=== PATIENT | male | born 1980 | race Caucasian/White ===

== ENCOUNTER 2020-11-27 10:14 | Day surgery (SDC) | payer OTHER, SELFPAY ==
[~2020-11-27] VITALS: Ht 177.8 cm; Wt 88.5 kg
[2020-11-27] MEDS ORDERED: BUPIVACAINE /PF 0.25% 30 ML VIAL INJ ONE (11:36)
[2020-11-27] MEDS ORDERED: SEVOFLURANE 15 MIN GAS INH ONE (11:36)
[2020-11-27] MEDS ORDERED: MIDAZOLAM HCL 5 MG/5 ML VIAL IVP ONE (11:36)
[2020-11-27] MEDS ORDERED: ONDANSETRON HCL 4 MG/2 ML VIAL IVP ONE (11:36)
[2020-11-27] MEDS ORDERED: PROPOFOL 200MG/ 20ML VIAL (DIPRIVAN) IV ONE (11:36)
[2020-11-27] MEDS ORDERED: NS 1000 ML IV.SOLN IV ONE (11:36)
[2020-11-27] MEDS ORDERED: fentaNYL CITRATE/PF 100 MCG/2 ML AMP IVP ONE (11:36)
[2020-11-27] MEDS ORDERED: DEXAMETHASONE SOD PHOSPHATE 4 MG/ML VIAL IVP ONE (11:36)
[2020-11-27] MEDS ORDERED: LR 1,000 ML IV.SOLN IV ONE (11:36)
[2020-11-27] MEDS ORDERED: LR 1,000 ML IV SCH (12:15)
[2020-11-27] MEDS ORDERED: MEPERIDINE HCL/PF 25 MG/ML DISP.SYRIN IVP PRN (12:15)
[2020-11-27] MEDS ORDERED: HYDROmorphone 1 INJ. 1 MG/ML CARTRIDGE IVP PRN ×2 (12:15)
[2020-11-27] MEDS ORDERED: METOCLOPRAMIDE HCL 10 MG/2 ML VIAL IVP PRN (12:15)
[2020-11-27] MEDS ORDERED: ONDANSETRON HCL 4 MG/2 ML VIAL IVP PRN (12:15)
[2020-11-27] MEDS ORDERED: MIDAZOLAM HCL 2 MG/2 ML VIAL (VERSED) IVP PRN (12:15)
[2020-11-27 13:16] VITALS: BP_SYST 117
== END 2020-11-27 14:00 | disposition home or self-care (01) ==
LOC: SDS 10:14 → SMU 10:16 → SDS 14:00
PROVIDERS: ATTEND Orthopaedic Surgery
DX: M65.341 Trigger finger, right ring finger (principal); Z88.0 Allergy status to penicillin; Z20.828 Contact with and (suspected) exposure to other viral communicable diseases
CPT/HCPCS: 26055; J1100; J2250; J2405; J2704; J3010; J3465; J3490; J7030; J7120; U0003